=== PATIENT | male | born 1955 | race Caucasian/White ===

== ENCOUNTER → 2020-10-10 01:19 | Outpatient (CLI) | payer BC, SELFPAY ==
--- NOTE | 2020-10-10 | DI.US_ITS ---
Exam(s) US PAIN CLINIC NEEDLE GUIDANCE EXAM: MERALGIA PARESTHETICA OF RT SIDE,G57.11,RADICULITIS RT L 1,M54.16,ULTRASOUN COMPARISON: No exams were available for comparison TECHNIQUE: Ultrasound performed for pain management guidance. FINDINGS: Radiologist was not present. Ultrasound guidance for pain management procedure was performed. IMPRESSION: DATA REPOSITORY:
[2020-10-10 14:20] VITALS: BP 135/80; PULSE 83; RESP 18; TEMP 37.1; O2SAT 99
--- NOTE | 2020-10-10 14:52 | PDOC.PAIN_ITS ---
Pain Clinic Procedure Note Procedure Note Procedure Note: ULTRASOUND GUIDED RIGHT LATERAL FEMORAL CUTANEOUS NERVE BLOCK Pre-Procedural Evaluation: Lazaro Luna has been referred to the [facility] for an Ultrasound Guided right Lateral femoral Cutaneous nerve block for a chief complaint of r ight anterolateral thigh pain. Pre-procedure Pain Score: 7/10 Dx: Meralgia Peresthetica Patient was interviewed and the medical record reviewed. There were no medical, pharmacologic, radiographic, or other structural contraindications to preforming an ultrasound guided injection. Risks and expected side effects as well as potential benefits of the procedure were reviewed. The patient consent form was signed and witnessed. Standard time-out procedure was performed. The use of direct ultrasound visualization of the needle (rather than a non- guided injection) was required to increase patient safety by excluding inadvertent intramuscular, intratendinous, or intraneural needle placement and minimizing bleeding by avoiding osteochondral or vascular injury from the needle. Additionally, the increased accuracy of placement may increase clinical effectiveness and will allow higher diagnostic specificity when evaluating effectiveness of this injection. Procedure Description: The patient was placed in the supine position and automated blood pressure cuff and pulse oximeter applied for monitoring during the procedure and recorded in the medical record. Pre-injection ultrasound scanning of the area of interest was performed using a linear transducer, identifying relevant anatomy, landmarks, and neurovascular structures allowing for optimal needle path. The site was then prepared in the usual sterile fashion, using thorough Chlorhexadine preparation of the skin and sterile draping. The same ultrasound transducer was then passed into the sterile field using sterile probe cover and sterile ultrasound gel. The injection target was again visualized. Skin and subcutaneous tissues were anesthetized with 2 mL of 1% Lidocaine. A 21 guage Pajunk ultrasound needle 3.5 inch needle was placed under live ultrasound guidance, using an in-plane approach, to the target area. After visualization of the needle tip at the target area, a mixture of 3 mL 2% Lidocaine and 1 cc of Depomedrol (40 mg/cc), totaling 4 mL of injectate was delivered after negative aspiration for blood. Ultrasound images were captured and stored for documentation purposes. Post-procedure Pain Score:5/10 Vital signs were stable throughout the procedure and were as recorded in the docflowsheet by the nursing staff. Follow up plans and appointments were discussed with the patient.Post procedure instruction was given as documented in nursing documentation and having met discharge criteria, they were discharged from the [facility]. COMMENTS: This procedure can be completed up to 3 times per 12 months if it is helpful. Braxton Ambrose DO, MPH Pain Management
[2020-10-10 14:59] VITALS: PULSE 87; O2SAT 98
[2020-10-10] MEDS: methylPREDNISolone ACETATE 40 MG/ML VIAL IJ (14:59)
[2020-10-10] MEDS: Lidocaine 1% Pres-Free 5 ML VIAL IJ (15:00)
== END ==
PROVIDERS: PCP Family Medicine; Visit Provider Preventive Medicine Occupational Medicine
DX: G57.11 Meralgia paresthetica, right lower limb (principal)
CPT/HCPCS: 64447; 76942; J1030